=== PATIENT | male | born 1995 | race Two or more races ===

== ENCOUNTER 2022-07-11 23:09 | Inpatient (IN) | payer MEDICAID, OTHER, SELFPAY ==
[~2022-07-11] VITALS: Ht 177.8 cm; Wt 117.3 kg
[2022-07-11] MEDS ORDERED: NS 1,000 ML IV ONE (23:15)
[2022-07-11] MEDS ORDERED: ISOVUE-370 76% 100ML VIAL As Ordered ONE (23:22)
[2022-07-11 23:33] LABS: BASO # 0.1 10^3/uL (0.0-0.2); BASO % 0.4 % (0.0-1.0); EOS # 0.4 10^3/uL (0.0-0.5); EOS % 2.6 % (0.0-3.0); HEMATOCRIT 42.6 % (42.0-52.0); HEMOGLOBIN 14.8 g/dl (13.5-17.5); LYMPH # 5.9 10^3/uL (1.5-5.0); LYMPH % 43.3 % (24.0-44.0); MEAN CORPUSCULAR HEMOGLOBIN 31.4 pg (27.0-33.0); MEAN CORPUSCULAR HGB CONC 34.7 g/dl (32.0-36.5); MEAN CORPUSCULAR VOLUME 90.4 fl (80.0-96.0); MONO # 0.5 10^3/uL (0.0-0.8); MONO % 3.7 % (2.0-8.0); NEUTROPHILS # 6.7 10^3/uL (1.5-8.5); NEUTROPHILS % 49.6 % (36.0-66.0); PLATELET COUNT, AUTOMATED 387 10^3/uL (150-450); RED BLOOD COUNT 4.71 10^6/uL (4.30-6.10); WHITE BLOOD COUNT 13.6 10^3/uL (4.0-10.0)
[2022-07-11 23:35] LABS: VENOUS BASE EXCESS -1.2 (-2.0-2.0); VENOUS HCO3 22.8 MEQ/L (23.0-27.0); VENOUS O2 SATURATION 99.3 % (60.0-80.0); VENOUS PARTIAL PRESSURE CO2 36.7 mmHg (38.0-50.0); VENOUS PARTIAL PRESSURE O2 220.4 mmHg (30.0-50.0); VENOUS PH 7.412 UNITS (7.330-7.430); VENOUS STANDARD HCO3 23.5 MEQ/L
[2022-07-12] VITALS (23 sets, daily range): BP systolic 131–173; BP diastolic 63–97
[2022-07-12 00:12] LABS: INR 1.04; PROTHROMBIN TIME 13.8 SECONDS (12.5-14.5)
[2022-07-12 00:13] LABS: PARTIAL THROMBOPLASTIN TIME 22.4 SECONDS (24.8-34.2)
[2022-07-12 00:15] LABS: ALBUMIN 3.9 G/DL (3.2-5.2); ALKALINE PHOSPHATASE 67 U/L (46-116); ALT/SGPT 18 U/L (7.0-40); AMYLASE 35 U/L (30-118); AST/SGOT 24 U/L (<34); BILIRUBIN,DIRECT < 0.1 MG/DL (<0.4); BILIRUBIN,TOTAL 0.2 MG/DL (0.3-1.2); CK-MB VALUE MASS < 1.0 NG/ML (<3.6); CPK CREATINE PHOSPHOKINASE 254 U/L (46-171); ETHYL ALCOHOL (ETHANOL) 0.165 % (0.000-0.010); LIPASE 18 U/L (12-53); MB/CK RELATIVE INDEX 0.39 (< OR =4); TOTAL PROTEIN 6.7 G/DL (5.7-8.2)
[2022-07-12 00:18] LABS: APPEARANCE, URINE MANUAL CLEAR (CLEAR); COLOR, URINE MANUAL YELLOW (YELLOW)
[2022-07-12 00:19] LABS: RSV AMPLIFICATION NEGATIVE (NEGATIVE)
[2022-07-12 00:19] LABS: BILIRUBIN, URINE MANUAL NEGATIVE (NEGATIVE); BLOOD URINE MANUAL NEGATIVE (NEGATIVE); GLUCOSE, URINE (UA) MANUAL NEGATIVE (NEGATIVE); KETONE, URINE MANUAL NEGATIVE (NEGATIVE); LEUKOCYTE ESTERASE, URINE MAN NEGATIVE (NEGATIVE); NITRITE, URINE MANUAL NEGATIVE (NEGATIVE); PROTEIN, URINE MANUAL NEGATIVE (NEGATIVE); UROBILINOGEN, URINE MANUAL NORMAL (NORMAL)
[2022-07-12] MEDS ORDERED: BUPIVACAINE/EPIN 0.25% 30ML VIAL As Ordered ONE (00:32)
[2022-07-12] MEDS ORDERED: ZOSYN 3.375GM VIAL As Ordered ONE (00:32)
[2022-07-12 00:46] LABS: AMPHETAMINES LEVEL URINE NEGATIVE (NEGATIVE); BARBITURATES URINE NEGATIVE (NEGATIVE); BENZODIAZEPINES URINE NEGATIVE (NEGATIVE); CANNABINOIDS URINE POSITIVE (NEGATIVE); COCAINE METABOLITE URINE NEGATIVE (NEGATIVE); METHADONE URINE NEGATIVE (NEGATIVE); OPIATES URINE NEGATIVE (NEGATIVE); PHENCYCLIDINE URINE NEGATIVE (NEGATIVE)
[2022-07-12] MEDS ORDERED: ROCURONIUM BROMIDE 50 MG/5 ML VIAL As Ordered ONE ×2 (00:57→01:00)
[2022-07-12] MEDS ORDERED: propofoL 200 MG/20 ML VIAL As Ordered ONE ×2 (01:00→02:32)
[2022-07-12] MEDS ORDERED: LIDOCAINE 2% 100MG/5ML SDV (FOR ANES.) As Ordered ONE (01:00)
[2022-07-12] MEDS ORDERED: dexameTHASONE 4 MG/ML 1ML VIAL (J1100 PER 1MG) As Ordered ONE (01:00)
[2022-07-12] MEDS ORDERED: fentaNYL 100 MCG/2 ML INJECTION As Ordered ONE ×2 (01:00→02:17)
[2022-07-12] MEDS ORDERED: PHENYLephrine 500MCG 5ML (100MCG/ML) SYRINGE As Ordered ONE (01:00)
[2022-07-12] MEDS ORDERED: ONDANSETRON 4MG 2ML VIAL As Ordered ONE (01:00)
[2022-07-12] MEDS ORDERED: MIDAZOLAM INJ 2MG/2ML VIAL (J2250 PER 1MG) As Ordered ONE (01:00)
[2022-07-12] MEDS ORDERED: ACETAMINOPHEN 1000MG 100ML IV BAG As Ordered ONE (01:42)
[2022-07-12] MEDS ORDERED: SUGAMMADEX SODIUM 500 MG/5 ML VIAL (BRIDION) As Ordered ONE (01:48)
[2022-07-12] MEDS ORDERED: LR 1,000 ML IV SCH (02:25)
[2022-07-12] MEDS ORDERED: oxyCODONE 5MG TAB PO PRN (02:25)
[2022-07-12] MEDS ORDERED: fentaNYL 100 MCG/2 ML INJECTION IV PRN (02:25)
[2022-07-12] MEDS ORDERED: ONDANSETRON 4MG 2ML VIAL IV PRN ×2 (02:25→02:50)
[2022-07-12] MEDS ORDERED: MORPHINE 2 MG/ML 1ML VIAL IV PRN ×2 (02:25→02:50)
[2022-07-12] MEDS ORDERED: ACETAMINOPHEN TAB 650MG DOSE (2X325MG) PO PRN (02:50)
[2022-07-12 03:31] LABS: BASO # 0.1 10^3/uL (0.0-0.2); BASO % 0.2 % (0.0-1.0); HEMATOCRIT 40.9 % (42.0-52.0); HEMOGLOBIN 13.6 g/dl (13.5-17.5); LYMPH # 1.6 10^3/uL (1.5-5.0); LYMPH % 5.5 % (24.0-44.0); MEAN CORPUSCULAR HEMOGLOBIN 30.8 pg (27.0-33.0); MEAN CORPUSCULAR HGB CONC 33.3 g/dl (32.0-36.5); MEAN CORPUSCULAR VOLUME 92.5 fl (80.0-96.0); MONO # 0.6 10^3/uL (0.0-0.8); NEUTROPHILS # 25.9 10^3/uL (1.5-8.5); NEUTROPHILS % 91.5 % (36.0-66.0); RED BLOOD COUNT 4.42 10^6/uL (4.30-6.10); WHITE BLOOD COUNT 28.3 10^3/uL (4.0-10.0)
[2022-07-12 03:44] LABS: PLATELET COUNT, AUTOMATED 216 10^3/uL (150-450)
[2022-07-12] MEDS: NS 1,000 ML IV SCH ×3 (04:03→14:58)
[2022-07-12] MEDS: KETOROLAC 30 MG/ML 1ML VIAL IV PRN ×2 (04:16→10:06)
[2022-07-12 04:20] LABS: BLOOD UREA NITROGEN 11 MG/DL (9-23); CARBON DIOXIDE LEVEL 25 MMOL/L (20-31); CHLORIDE LEVEL 103 MMOL/L (98-107); CREATININE FOR GFR 0.77 MG/DL (0.70-1.30); GLOMERULAR FILTRATION RATE > 60.0 (>60); GLUCOSE, FASTING 190 MG/DL (60-100); POTASSIUM SERUM 4.1 MMOL/L (3.5-5.1); SODIUM LEVEL 139 MMOL/L (136-145)
[2022-07-12] MEDS: PIPERACILLIN/TAZOBACTAM SOD 3.375 GM in D5W MINI-BAG PLUS 50 ML IV SCH ×3 (05:20→18:28)
[2022-07-12] MEDS: MORPHINE 2 MG/ML 1ML VIAL IV PRN ×5 (08:13→22:42)
[2022-07-12] MEDS: PANTOPRAZOLE 40MG VIAL IV SCH (08:13)
[2022-07-12] MEDS: SENOKOT S TAB PO SCH ×2 (08:13→20:30)
[2022-07-12] MEDS: NORCO, ANEXSIA 5/325MG TABLET (HYDROcodone/ACETAMINOPHEN) PO PRN ×2 (10:06→18:28)
[2022-07-13] VITALS (7 sets, daily range): BP systolic 125–146; BP diastolic 59–86
[2022-07-13] MEDS: PIPERACILLIN/TAZOBACTAM SOD 3.375 GM in D5W MINI-BAG PLUS 50 ML IV SCH ×5 (00:33→23:29)
[2022-07-13] MEDS: NORCO, ANEXSIA 5/325MG TABLET (HYDROcodone/ACETAMINOPHEN) PO PRN ×4 (00:34→20:56)
[2022-07-13] MEDS: NS 1,000 ML IV SCH ×3 (01:08→20:57)
[2022-07-13 06:25] LABS: HEMATOCRIT 31.9 % (42.0-52.0); MEAN CORPUSCULAR HGB CONC 33.9 g/dl (32.0-36.5); MEAN CORPUSCULAR VOLUME 91.7 fl (80.0-96.0); PLATELET COUNT, AUTOMATED 207 10^3/uL (150-450); RED BLOOD COUNT 3.48 10^6/uL (4.30-6.10)
[2022-07-13 06:52] LABS: HEMOGLOBIN 10.8 g/dl (13.5-17.5)
[2022-07-13 06:55] LABS: BLOOD UREA NITROGEN 12 MG/DL (9-23); CALCIUM LEVEL 8.2 MG/DL (8.5-10.1); CARBON DIOXIDE LEVEL 30 MMOL/L (20-31); CHLORIDE LEVEL 104 MMOL/L (98-107); CREATININE FOR GFR 0.64 MG/DL (0.70-1.30); GLOMERULAR FILTRATION RATE > 60.0 (>60); GLUCOSE, FASTING 117 MG/DL (60-100); POTASSIUM SERUM 4.2 MMOL/L (3.5-5.1); SODIUM LEVEL 140 MMOL/L (136-145)
[2022-07-13] MEDS: MORPHINE 2 MG/ML 1ML VIAL IV PRN ×3 (06:56→23:29)
[2022-07-13] MEDS: SENOKOT S TAB PO SCH ×2 (08:16→20:56)
[2022-07-13] MEDS: PANTOPRAZOLE 40MG VIAL IV SCH (09:23)
[2022-07-13] MEDS: KETOROLAC 30 MG/ML 1ML VIAL IV PRN ×2 (10:37→17:33)
[2022-07-13] MEDS ORDERED: HOME MED LIST COMPLETE! XX SCH (13:25)
[2022-07-14] VITALS (8 sets, daily range): BP systolic 127–198; BP diastolic 60–108
[2022-07-14] MEDS: KETOROLAC 30 MG/ML 1ML VIAL IV PRN ×3 (00:06→18:01)
[2022-07-14] MEDS: NS 1,000 ML IV SCH (05:06)
[2022-07-14] MEDS: PIPERACILLIN/TAZOBACTAM SOD 3.375 GM in D5W MINI-BAG PLUS 50 ML IV SCH ×4 (05:06→18:01)
[2022-07-14] MEDS: NORCO, ANEXSIA 5/325MG TABLET (HYDROcodone/ACETAMINOPHEN) PO PRN ×4 (05:12→20:00)
[2022-07-14 06:13] LABS: HEMATOCRIT 30.1 % (42.0-52.0); HEMOGLOBIN 10.2 g/dl (13.5-17.5); MEAN CORPUSCULAR HEMOGLOBIN 31.3 pg (27.0-33.0); MEAN CORPUSCULAR HGB CONC 33.9 g/dl (32.0-36.5); MEAN CORPUSCULAR VOLUME 92.3 fl (80.0-96.0); PLATELET COUNT, AUTOMATED 199 10^3/uL (150-450); RED BLOOD COUNT 3.26 10^6/uL (4.30-6.10); WHITE BLOOD COUNT 9.4 10^3/uL (4.0-10.0)
[2022-07-14 06:34] LABS: CARBON DIOXIDE LEVEL 31 MMOL/L (20-31); CHLORIDE LEVEL 102 MMOL/L (98-107); POTASSIUM SERUM 3.8 MMOL/L (3.5-5.1); SODIUM LEVEL 139 MMOL/L (136-145)
[2022-07-14 06:39] LABS: CALCIUM LEVEL 8.6 MG/DL (8.5-10.1)
[2022-07-14 06:40] LABS: BLOOD UREA NITROGEN 7 MG/DL (9-23); GLUCOSE, FASTING 118 MG/DL (60-100)
[2022-07-14 06:42] LABS: CREATININE FOR GFR 0.66 MG/DL (0.70-1.30); GLOMERULAR FILTRATION RATE > 60.0 (>60)
[2022-07-14] MEDS: SENOKOT S TAB PO SCH ×2 (09:41→20:23)
[2022-07-14] MEDS: PANTOPRAZOLE 40MG VIAL IV SCH (09:42)
[2022-07-14] MEDS ORDERED: ALPRAZolam 0.5 MG TAB PO ONE (19:55)
[2022-07-14] MEDS: MORPHINE 2 MG/ML 1ML VIAL IV PRN (22:27)
[2022-07-15] VITALS: BP 141/84
[2022-07-15 04:00] VITALS: BP 157/93
[2022-07-15] MEDS: PIPERACILLIN/TAZOBACTAM SOD 3.375 GM in D5W MINI-BAG PLUS 50 ML IV SCH ×3 (05:12→17:57)
[2022-07-15 06:02] LABS: HEMATOCRIT 31.5 % (42.0-52.0); HEMOGLOBIN 10.7 g/dl (13.5-17.5); MEAN CORPUSCULAR HEMOGLOBIN 31.2 pg (27.0-33.0); MEAN CORPUSCULAR VOLUME 91.8 fl (80.0-96.0); PLATELET COUNT, AUTOMATED 249 10^3/uL (150-450); RED BLOOD COUNT 3.43 10^6/uL (4.30-6.10); WHITE BLOOD COUNT 12.6 10^3/uL (4.0-10.0)
[2022-07-15 06:24] LABS: CHLORIDE LEVEL 101 MMOL/L (98-107); POTASSIUM SERUM 3.8 MMOL/L (3.5-5.1); SODIUM LEVEL 138 MMOL/L (136-145)
[2022-07-15 06:25] LABS: CARBON DIOXIDE LEVEL 30 MMOL/L (20-31)
[2022-07-15 06:30] LABS: BLOOD UREA NITROGEN 8 MG/DL (9-23); CALCIUM LEVEL 8.7 MG/DL (8.5-10.1); GLUCOSE, FASTING 125 MG/DL (60-100)
[2022-07-15 06:32] LABS: CREATININE FOR GFR 0.64 MG/DL (0.70-1.30); GLOMERULAR FILTRATION RATE > 60.0 (>60)
[2022-07-15 08:00] VITALS: BP 161/92
[2022-07-15] MEDS ORDERED: IPRATROPIUM 0.5MG/ALBUTEROL 2.5MG INH SOL UD 3ML (DUONEB) NEB PRN (08:15)
[2022-07-15] MEDS: PANTOPRAZOLE 40MG VIAL IV SCH (09:17)
[2022-07-15] MEDS: SENOKOT S TAB PO SCH ×2 (09:18→19:53)
[2022-07-15] MEDS: NORCO, ANEXSIA 5/325MG TABLET (HYDROcodone/ACETAMINOPHEN) PO PRN ×2 (09:18→17:43)
[2022-07-15] MEDS: IPRATROPIUM 0.5MG/ALBUTEROL 2.5MG INH SOL UD 3ML (DUONEB) NEB SCH ×3 (10:43→20:18)
[2022-07-15 12:00] VITALS: BP 161/93
[2022-07-15 16:00] VITALS: BP 159/92
[2022-07-15] MEDS: KETOROLAC 30 MG/ML 1ML VIAL IV PRN (19:48)
[2022-07-15 20:00] VITALS: BP 156/95
[2022-07-15] MEDS: MORPHINE 2 MG/ML 1ML VIAL IV PRN (22:22)
[2022-07-16] VITALS: BP 152/94
[2022-07-16] MEDS: PIPERACILLIN/TAZOBACTAM SOD 3.375 GM in D5W MINI-BAG PLUS 50 ML IV SCH ×2 (00:13→05:11)
[2022-07-16] MEDS: NORCO, ANEXSIA 5/325MG TABLET (HYDROcodone/ACETAMINOPHEN) PO PRN ×2 (00:14→06:22)
[2022-07-16] MEDS: IPRATROPIUM 0.5MG/ALBUTEROL 2.5MG INH SOL UD 3ML (DUONEB) NEB SCH ×2 (01:14→08:54)
[2022-07-16 04:00] VITALS: BP 134/80
[2022-07-16 05:33] LABS: HEMOGLOBIN 11.5 g/dl (13.5-17.5); MEAN CORPUSCULAR HEMOGLOBIN 31.3 pg (27.0-33.0); MEAN CORPUSCULAR HGB CONC 33.8 g/dl (32.0-36.5); MEAN CORPUSCULAR VOLUME 92.4 fl (80.0-96.0); PLATELET COUNT, AUTOMATED 263 10^3/uL (150-450); RED BLOOD COUNT 3.68 10^6/uL (4.30-6.10); WHITE BLOOD COUNT 11.2 10^3/uL (4.0-10.0)
[2022-07-16 06:03] LABS: BLOOD UREA NITROGEN 12 MG/DL (9-23); CALCIUM LEVEL 9.2 MG/DL (8.5-10.1); CARBON DIOXIDE LEVEL 30 MMOL/L (20-31); CHLORIDE LEVEL 98 MMOL/L (98-107); CREATININE FOR GFR 0.62 MG/DL (0.70-1.30); GLOMERULAR FILTRATION RATE > 60.0 (>60); GLUCOSE, FASTING 104 MG/DL (60-100); SODIUM LEVEL 138 MMOL/L (136-145)
[2022-07-16 08:00] VITALS: BP 130/70
[2022-07-16] MEDS: KETOROLAC 30 MG/ML 1ML VIAL IV PRN (08:34)
[2022-07-16] MEDS: PANTOPRAZOLE 40MG VIAL IV SCH (09:04)
[2022-07-16] MEDS: SENOKOT S TAB PO SCH (09:04)
[2022-07-16] MEDS ORDERED: HYDR-3715 PO (10:51)
== END 2022-07-16 11:43 | disposition home or self-care (01) | DRG 911 ==
LOC: M ED 23:09 → EDBD 23:09 → M SDC 23:10 → M ED 07-12 00:07 → M ED INP 07-12 02:46 → M ICU 07-12 03:36 → M PCU 07-12 18:08
PROVIDERS: ADMIT Surgery; ATTEND Surgery
PROC: 0BQT4ZZ Repair Diaphragm, Percutaneous Endoscopic Approach (ICD-10-PCS; principal; 2022-07-12)
PROC: 0DQ64ZZ Repair Stomach, Percutaneous Endoscopic Approach (ICD-10-PCS; 2022-07-12)
PROC: 8E0W4CZ Robotic Assisted Procedure of Trunk Region, Percutaneous Endoscopic Approach (ICD-10-PCS; 2022-07-12)
PROC: 0W9B30Z Drainage of Left Pleural Cavity with Drainage Device, Percutaneous Approach (ICD-10-PCS; 2022-07-12)
DX: S27.1XXA Traumatic hemothorax, initial encounter (principal); S21.3 Open wound of front wall of thorax with penetration into thoracic cavity; S31.611A Laceration without foreign body of abdominal wall, left upper quadrant with penetration into peritoneal cavity, initial encounter; S27.803A Laceration of diaphragm, initial encounter; D72.829 Elevated white blood cell count, unspecified; Y07.50 Unspecified non-family member, perpetrator of maltreatment and neglect; J98.11 Atelectasis; Y92.89 Other specified places as the place of occurrence of the external cause; Y99.8 Other external cause status; Y93.9 Activity, unspecified; F10.10 Alcohol abuse, uncomplicated